=== PATIENT | female | born 1965 | race Caucasian/White ===

== ENCOUNTER → 2019-11-03 | Outpatient (CLI) | payer BC | LOC: RAD 10:02 | PROVIDERS: ATTEND Obstetrics & Gynecology | DX: Z12.31 Encounter for screening mammogram for malignant neoplasm of breast (principal) | CPT/HCPCS: 77067 ==

== ENCOUNTER → 2019-12-06 | Outpatient (CLI) | payer BC ==
--- NOTE | 2019-12-06 17:00 | Diagnostic Imaging Report ---
INDICATION: Right breast density and questionable architectural distortion. Correlation is made with diagnostic mammogram earlier the same day as well as screening mammogram from 11/03/2019 and 04/11/2015. In addition, left breast was evaluated in the upper-outer aspect. FINDINGS: Evaluation of the 5-7 o'clock location of the right breast was performed. There is a simple-appearing cyst at the 7 o'clock location, 6 cm from the nipple measuring 5 mm in diameter. No suspicious mass on the right is identified. Evaluation of the upper-outer left breast does show two small cysts. The largest is at the 2 o'clock location, 4 cm from the nipple measuring 7 mm x 5 mm x 7 mm. A smaller cyst at the 2:30 location 5 cm from the nipple measures approximately 5 mm x 8 mm x 4 mm. No solid mass is seen. IMPRESSION: Bilateral breasts cysts, as described. No suspicious sonographic abnormality is detected. ACR BI-RADS Category 2: Benign findings. Dictated by: Dictated on workstation # [id number]
--- NOTE | 2019-12-06 17:07 | Diagnostic Imaging Report ---
INDICATION: Right breast architectural distortion. COMPARISON: Correlation is made with the prior mammograms from 11/03/2019 and 04/11/2015. TECHNIQUE: Unilateral right 2D and 3D diagnostic mammography was performed. This includes spot compression CC and ML views as well as a conventional 90 degree lateral view. The current study was evaluated with a Computer Aided Detection (CAD) system. FINDINGS: There is some increased density and questionable architectural distortion in the inferior aspect of the right breast at approximately the 6 o'clock location. No suspicious calcifications are seen. IMPRESSION: Additional views show some mild persistent density in the inferior right breast approximately 6 cm from the nipple. Further evaluation of this area with ultrasound is recommended and will be performed today. ACR BI-RADS Category 0: Incomplete. (Needs additional imaging evaluation). Result letter will be mailed to the patient. Note: At least 10% of breast cancer is not imaged by mammography. Dictated by: Dictated on workstation # [id number]
== END ==
LOC: RAD 14:18
PROVIDERS: ATTEND Obstetrics & Gynecology
DX: N60.01 Solitary cyst of right breast (principal); N60.02 Solitary cyst of left breast
CPT/HCPCS: 76642

== ENCOUNTER → 2023-06-11 | Outpatient (CLI) | payer OTHER ==
--- NOTE | 2023-06-11 20:58 | Diagnostic Imaging Report ---
INDICATION: Routine screening. COMPARISON: Prior mammogram, 11/03/2019. EXAMINATION: 2D and 3D bilateral screening mammography was performed with CAD. The current study was also evaluated with a Computer Aided Detection (CAD) system. FINDINGS: Both breasts are heterogeneously dense, limiting the sensitivity of mammography. There is a density noted in the medial aspect of the left breast which appears more prominent than prior exam. No definite correlate on the MLO view is identified. Right breast is unremarkable. No malignant-appearing microcalcification is seen. Axillae are unremarkable. IMPRESSION: Left breast density. Additional views are recommended for further evaluation. Spot compression and rolled CC views as well as mediolateral views are recommended. ACR BI-RADS Category 0: Incomplete. (Needs additional imaging evaluation). Result letter will be mailed to the patient. Note: At least 10% of breast cancer is not imaged by mammography. Dictated by: Dictated on workstation # [id number]
== END ==
LOC: RAD 15:10
PROVIDERS: ATTEND Obstetrics & Gynecology
DX: Z12.31 Encounter for screening mammogram for malignant neoplasm of breast (principal); N63.20 Unspecified lump in the left breast, unspecified quadrant
CPT/HCPCS: 77063; 77067